=== PATIENT | male | born 1960 | race Caucasian/White ===

== ENCOUNTER 2020-09-29 11:14 | Emergency (ER) | payer OTHER, SELFPAY ==
[2020-09-29 11:30] VITALS: BP 139/97; PULSE 102; RESP 16; TEMP 36.8; O2SAT 99
[2020-09-29 11:38] VITALS: BP 139/97; PULSE 102; RESP 16; TEMP 36.8; O2SAT 99
--- NOTE | 2020-09-29 12:02 | ED.GENADULT ---
HPI - General Adult General Chief complaint: Upper Respiratory Infection Stated complaint: Fever,Aches Pain Time Seen by Provider: 09/29/20 12:02 Source: patient Mode of arrival: ambulatory Limitations: no limitations History of Present Illness HPI narrative: 60-year-old male patient presents to the [facility] with complaints of a fever and body aches. Patient states he woke up this morning not feeling well had a fever of 100.4. Patient states he called into work today however his employer notified them that he has to have a Covid test before coming back to work. Patient denies take anything for symptoms but states he is feeling better already. Patient denies any chest pain or shortness of breath. Patient states he does have a chronic cough due to his vocal cord being removed and states that that is not new. Denies any runny nose, congestion, ear pain, abdominal pain, nausea, vomiting or diarrhea. Related Data Home Medications Medication Instructions Recorded Confirmed levothyroxine 100 mcg PO DAILY 09/29/20 09/29/20 Allergies Allergy/AdvReac Type Severity Reaction Status Date / Time No Known Allergies Allergy Mild Verified 09/29/20 11:25 Review of Systems Review of Systems: Narrative: CONSTITUTIONAL: Positive subjective fever, denies chills, or sweats. Positive body aches EYES: Denies visual changes, redness, or discharge. ENT: Denies rhinorrhea, congestion, sore throat, or otalgia. CARDIOVASCULAR: Denies chest pain, palpitations, or edema. RESPIRATORY: Positive chronic cough, denies dyspnea. GASTROINTESTINAL: Denies abdominal pain, nausea, vomiting, or diarrhea. GENITOURINARY: Denies dysuria or hematuria. SKIN: Denies rash or itching. MUSCULOSKELETAL: Denies back pain, joint pain, or myalgia. NEUROLOGIC: Denies headache, numbness, or weakness. PSYCHIATRIC: Denies anxiety or depression. [facility] Past Medical History Medical History (Updated 09/29/20 @ 12:12 by JOSE Mtz) Anxiety Vocal cord cancer Vocal cord removed Surgical History Surgical History (Updated 09/29/20 @ 12:08 by JOSE Mtz) H/O thyroidectomy Comments At the time of my signature I agree with nursing past medical history, surgical, social, and family history. There is no relevant family history pertinent to the presenting complaint. Exam Narrative: Exam Narrative: GENERAL: Well-appearing, well-nourished, and in no acute distress. HEAD: Normocephalic, atraumatic. EYES: PERRLA and EOMI. ENT: Nares clear, no rhinorrhea or epistaxis. Mucous membranes moist. Posterior pharynx with no erythema, tonsil management, exudates or lesions present. Bilateral TMs are clear no erythema or foreign bodies in the canal. NECK: Supple. No lymphadenopathy CHEST: Clear to auscultation. No respiratory distress. HEART: Regular rate and rhythm. No murmur heard. Normal peripheral pulses. ABDOMEN: Soft, nontender, nondistended, normal active bowel sounds. EXTREMITIES: Normal range of motion. No edema. SKIN: Warm, dry, no rash. NEURO: No focal deficits. Alert and oriented x3. Course Reevaluation(s) Reevaluation #1: Reevaluated patient after strep and flu have resulted. Both are negative at this time. We will send patient for Covid testing. I have written an order and fax it to [facility]. Discussed with him that Covid testing is high in the band at this time so it may take close to 2 days before they call him to set up the appointment. Discussed with patient that he needs to stay isolated and treat his symptoms conservatively with Tylenol, ibuprofen or any [id number] cold medications as needed. Patient verbalized understanding. Discussed with patient if he has worsening symptoms such as chest pains, cough or high fever then he needs to go to the ER for further evaluation. Patient verbalized understanding denies any other questions or concerns at this time. Date: 09/29/20 Time: 12:27 Vital Signs Vital signs: Vital Signs Tem
[2020-10-02 08:15] VITALS: BP 135/85; PULSE 93; RESP 16; TEMP 36.8; O2SAT 97
== END 2020-09-29 12:28 | disposition home or self-care (01) ==
PROVIDERS: Emergency Provider Nurse Practitioner Family
DX: R50.9 Fever, unspecified (principal); Z20.828 Contact with and (suspected) exposure to other viral communicable diseases; U07.1 COVID-19; E89.0 Postprocedural hypothyroidism
CPT/HCPCS: 87081; 87804; 87880; 99213; G0463

== ENCOUNTER → 2022-05-06 09:41 | Outpatient (CLI) | payer OTHER, SELFPAY ==
--- NOTE | ~2022-05-06 | XR_ITS ---
XR cervical spine 4-5V DATE: 05/06/2022 10:12 INDICATION: Cervical radiculopathy TECHNIQUE: AP, open-mouth, odontoid, lateral and swimmer views COMPARISON: 09/12/2017 CT soft tissue neck FINDINGS: There is straightening of the cervical spine. C1 and C2 are normally aligned and the odontoid process is intact. There is stable mild anterolisthesis at C2-3, also noted on 09/12/2017. There is severe degenerative disc disease at C3-4, moderate degenerative disc disease at C4-5, modera tely severe degenerative disc disease at C5-6. There is uncovertebral joint spurring of the mid and lower cervical spine. No fracture or dislocation or locked facet or prevertebral soft tissue swelling is detected. Surgical clips are noted in the soft tissues of the neck bilaterally. IMPRESSION: Straightening Stable chronic mild anterolisthesis at C2-3 Multilevel degenerative disc disease, most pronounced at C3-4 Reviewed, dictated and finalized at location A.
== END ==
PROVIDERS: PCP Chiropractor Rehabilitation; Visit Provider Chiropractor Rehabilitation
DX: M54.12 Radiculopathy, cervical region (principal); M53.82 Other specified dorsopathies, cervical region; M43.12 Spondylolisthesis, cervical region; M50.31 Other cervical disc degeneration, high cervical region
CPT/HCPCS: 72050

== ENCOUNTER → 2022-05-13 07:41 | Outpatient (CLI) | payer OTHER, SELFPAY ==
--- NOTE | ~2022-05-13 | MR_ITS ---
EXAMINATION: MR cervical spine wo con DATE: 05/13/2022 08:21 INDICATION: Cervical radiculopathy. TECHNIQUE: Magnetic resonance imaging (MRI) of the cervical spine was performed without intravenous c ontrast. Sequences included sagittal T2-weighted FSE, sagittal T2-weighted FS FSE, sagittal T1-weight ed FSE, axial MERGE, and axial T2-weighted FSE. COMPARISON: Cervical spine radiographs 05/06/22 FINDINGS: There is 6 degrees dextrocurvature of cervical spine. Vertebral body heights are normal. Th ere is severely decreased disc height at C3-C4, moderately decreased disc height at C4-C5, and severe ly decreased disc height at C5-C6 with endplate remodeling. The spinal cord signal intensity is jessica l. The following disc levels are specifically discussed: C2-C3: The disc does not extend beyond the endplate margin. There is no uncovertebral joint osteoarth ritis. There is severe right and mild left facet joint osteoarthritis. There is mild bilateral neural foraminal stenosis. There is no central canal stenosis. C3-C4: The disc is bulging. There is severe bilateral uncovertebral joint osteoarthritis. There is mi ld bilateral facet joint osteoarthritis. There is severe bilateral neural foraminal stenosis. There i s moderate central canal stenosis with ventral and dorsal indentation of the spinal cord. C4-C5: The disc is bulging. There is severe bilateral uncovertebral joint osteoarthritis. There is se christopher bilateral facet joint osteoarthritis. There is severe bilateral neural foraminal stenosis. There is mild central canal stenosis with ventral indentation of spinal cord. C5-C6: The disc is bulging. There is severe bilateral uncovertebral joint osteoarthritis. There is mi ld right and moderate left facet joint osteoarthritis. There is moderate bilateral neural foraminal s tenosis. There is mild central canal stenosis. C6-C7: The disc is bulging. There is moderate right and severe left uncovertebral joint osteoarthriti s. There is mild right and moderate left facet joint osteoarthritis. There is moderate bilateral neur al foraminal stenosis. There is mild central canal stenosis. C7-T1: The disc is bulging with superimposed extrusion in right lateral recess and right neural isael en. There is no uncovertebral joint osteoarthritis. There is mild bilateral facet joint osteoarthriti s. There is mild bilateral neural foraminal stenosis. There is mild central canal stenosis. There is severe stenosis of right lateral recess. IMPRESSION: 1. Severe cervical spondylosis. Reviewed, dictated and finalized at location A.
== END ==
PROVIDERS: PCP Chiropractor Rehabilitation; Visit Provider Chiropractor Rehabilitation
DX: M54.12 Radiculopathy, cervical region (principal); M43.02 Spondylolysis, cervical region
CPT/HCPCS: 72141

== ENCOUNTER 2022-07-10 21:25 | Emergency (ER) | payer OTHER, SELFPAY ==
[2022-07-10 21:30] VITALS: BP 126/81; PULSE 88; RESP 16; TEMP 36.4; O2SAT 98
[2022-07-10 21:43] VITALS: BP 126/81; PULSE 88; RESP 18; TEMP 36.4; O2SAT 98
[2022-07-10 23:45] VITALS: BP 123/90; PULSE 81; RESP 20; TEMP 36.9; O2SAT 99
--- NOTE | 2022-07-11 00:07 | ED.WOUNDLAC ---
HPI - Wound/Laceration General Chief Complaint: Wound/Laceration Stated Complaint: leg lac Time Seen by Provider: 07/10/22 23:34 History of Present Illness HPI narrative: 62-year-old male presents the emergency room for evaluation of laceration to his right ankle. Patient states that he was taking down a [place] with a pocket knife when it slipped out of his hand and fell cutting his right ankle. Tetanus is not up-to-date. Related Data Home Medications Medication Instructions Recorded Confirmed levothyroxine 100 mcg tablet 100 mcg PO DAILY 09/29/20 09/29/20 Allergies Allergy/AdvReac Type Severity Reaction Status Date / Time No Known Allergies Allergy Mild Verified 07/10/22 21:25 Review of Systems Review of Systems: CONSTITUTIONAL: Denies fever, chills, or sweats. EYES: Denies visual changes, redness, or discharge. ENT: Denies rhinorrhea, congestion, sore throat, or otalgia. CARDIOVASCULAR: Denies chest pain, palpitations, or edema. RESPIRATORY: Denies cough or dyspnea. GASTROINTESTINAL: Denies abdominal pain, nausea, vomiting, or diarrhea. GENITOURINARY: Denies dysuria or hematuria. SKIN: Reports laceration to right ankle MUSCULOSKELETAL: Denies back pain, joint pain, or myalgia. NEUROLOGIC: Denies headache, numbness, dizziness, or weakness. PSYCHIATRIC: Denies anxiety or depression. [facility] Past Medical History Medical History Anxiety Vocal cord cancer Vocal cord removed Surgical History Surgical History H/O thyroidectomy Exam Narrative: GENERAL: Well-appearing, well-nourished, no physical limitations, and in no acute distress. HEAD: Normocephalic, atraumatic. EYES: Conjunctivae normal, PERRLA and EOMI. CHEST: Clear to auscultation. No respiratory distress. No wheezes rales or rhonchi. No tenderness. HEART: Regular rate and rhythm. No murmur heard. Normal peripheral pulses. EXTREMITIES: Normal range of motion. No edema. No clubbing or cyanosis SKIN: Warm, dry, no rash. Right ankle: NEURO: No focal deficits. Alert and oriented x3. MAEW. CN's II-XI intact bilaterally, normal gait PSYCH: Cooperative. Normal mood and affect. Course Vital Signs Vital signs: Vital Signs Temperature 36.4 C L 07/10/22 21:30 Pulse Rate 88 07/10/22 21:30 Respiratory Rate 16 07/10/22 21:30 Blood Pressure 126/81 07/10/22 21:30 Pulse Oximetry 98 07/10/22 21:30 Temperature 36.4 C L 07/10/22 21:43 Pulse Rate 88 07/10/22 21:43 Respiratory Rate 18 07/10/22 21:43 Blood Pressure 126/81 07/10/22 21:43 Pulse Oximetry 98 07/10/22 21:43 Oxygen Delivery Room Air 07/10/22 21:43 Procedures Laceration Laceration 1: Date: 07/11/22 Time: 00:09 Site: lower extremity Side (If applicable): right Size (cm): 3 Description: linear Depth: simple, single layer Local Anesthetic: lidocaine 1% and with epi Amount of anesthesia used (mL): 8 Pre-repair: irrigated ====== Skin Level ====== Skin layer closed with: nylon Size (cm): 4-0 Number of sutures: 6 Technique: simple, interrupted ====== Subcutaneous Layer ====== ====== Muscle Layer ====== ====== Tendon Layer ====== Discharge Plan Discharge Clinical Impression: Laceration Patient Disposition: Home, Self-Care Condition: Stable Instructions: Antibiotic Form, Laceration (ED) Additional Instructions: Keep wound clean and dry. Take Tylenol and ibuprofen as needed for pain. Monitor for signs of infection which include redness, swelling, increased pain, discharge. Stitches come out in 10 days. Prescriptions: New cephalexin 500 mg capsule 500 mg PO Q12H 7 Days Qty: 14 0RF No Action levothyroxine 100 mcg Tablet 100 mcg PO DAILY Follow-up/Referrals: Mau,NARCISO Calle [Primary Care Provider
[2022-07-11] MEDS: TETANUS,DIPHTHERIA,AC PERTUSSIS ADULT (0.5 ML) BOOSTRIX IM (00:16)
[2022-07-11] MEDS: LIDO 1%/EPINEPHRINE 1:100,000 20 ML VIAL INFILTRATE (00:18)
[2022-07-11 00:25] VITALS: BP 123/91; PULSE 83; RESP 20; O2SAT 99
== END 2022-07-11 00:26 | disposition home or self-care (01) ==
PROVIDERS: Emergency Provider Nurse Practitioner Family; PCP Chiropractor Rehabilitation
DX: S91.011A Laceration without foreign body, right ankle, initial encounter (principal); W26.0XXA Contact with knife, initial encounter; E89.0 Postprocedural hypothyroidism; Z23 Encounter for immunization
CPT/HCPCS: 12002; 90471; 90715; 99283